=== PATIENT | female | born 1975 | race Caucasian/White ===

== ENCOUNTER 2017-11-06 17:27 | Emergency (ER) | payer OTHER ==
--- NOTE | 2017-11-06 18:09 | PHYS DOC ---
Adult General Chief Complaint Chief Complaint: LOWER EXT PAIN HPI HPI Patient is a 41-year-old female who started expressing some leg cramping behind her left knee this afternoon and she was concerned there may be a clot. Patient denies any other symptoms. Review of Systems Review of Systems Constitutional: Denies fever or chills [] HENT: Denies pain Respiratory: Denies cough or shortness of breath [] Cardiovascular: No chest pain GI: Denies abdominal pain, nausea, vomiting : Denies dysuria or hematuria [] Musculoskeletal: cramp at upper calf left leg Integument: Denies rash or skin lesions [] Neurologic: Denies headache, focal weakness or sensory changes [] All other systems were reviewed and found to be within normal limits, except as documented in this note. Physical Exam Physical Exam Constitutional: Well developed, well nourished, no acute distress, non-toxic appearance. [] HENT: Normocephalic, atraumatic, Eyes: EOMI, conjunctiva normal, no discharge. [] Neck: Normal range of motion, trachea midline no stridor. [] Cardiovascular:Heart rate regular rhythm, no murmur, normal perfusion Lungs & Thorax: Bilateral breath sounds clear to auscultation, no tachypnea Abdomen: No distention Skin: Warm, dry, no erythema, no rash. No discoloration Back: No tenderness, no CVA tenderness. [] Extremities: No cyanosis, no clubbing, ROM intact, no edema. No signs of DVT, no signs of compartment syndrome, no discoloration, neurovascularly intact distally. Homans sign negative. Very mild tenderness to palpation in the very upper calf. No evidence of Fay's cyst. No swelling of the popliteal fossa Neurologic: Alert and oriented X 3, normal motor function, ambulates in the ED with normal gait and without assistance, no focal deficits noted. [] Psychologic: Affect normal, judgement normal, mood normal. [] EKG EKG [] Radiology/Procedures Radiology/Procedures [] Course & Med Decision Making Course & Med Decision Making Pertinent Labs and Imaging studies reviewed. (See chart for details) At the time of the ED evaluation I do not believe the patient is in need of imaging or inpatient evaluation. The patient is describing an isolated sensation and clinically she has no signs of vascular insufficiency, infection, clot or traumatic injury. Patient is in no distress in the emergency department , no visible pain, no tachypnea, patient doesn't describe any chest pain or shortness of air. I believe that the patient is correct and in saying that she experienced a cramp and at this time there is no evidence of a DVT. I offered the patient some inflammatories for pain control and she declined [] Dragon Disclaimer Dragon Disclaimer This electronic medical record was generated, in whole or in part, using a voice recognition dictation system. Departure Departure: Impression: Primary Impression: Leg cramp Disposition: 01 HOME, SELF-CARE Condition: STABLE Referrals: PCP,NO (PCP) Please review is any changes like swelling or discoloration or increased pain or return to the ED immediately or see your PCP for recheck. Similarly gets pain shortness of air or chest pain see a medical provider to get reevaluated Patient Instructions: Leg Cramps Terrence SYLVESTER MD Nov 06, 2017 18:09
[2017-11-06 18:13] VITALS: BP 156/98
== END 2017-11-06 18:13 | disposition home or self-care (01) ==
LOC: ER 17:27
DX: R25.2 Cramp and spasm (principal); M25.562 Pain in left knee
CPT/HCPCS: 99281